=== PATIENT | male | born 1970 | race Hispanic/Latino ===

== ENCOUNTER 2023-10-07 20:25 | Inpatient (IN) | payer SELFPAY ==
[2023-10-07 21:23] LABS: #Eosinphils 0.3 thou/uL (0.0-0.7); #Monocytes 0.6 thou/uL (0.11-0.59); #Neutrophils 5.5 thou/uL (1.40-6.50); %Basophils 0.4 % (0.0-1.0); %Eosinophils 4.3 % (0.0-10.0); %Lymphocytes 15.9 % (21.0-51.0); %Monocytes 7.8 % (0.0-10.0); %Neutrophils 71.2 % (42.0-75.0); Hematocrit 33.9 % (42.0-52.0); Hemoglobin 10.6 g/dL (14.0-18.0); Mean Corpuscular HGB CONC 31.3 g/dL (32.0-36.0); Mean Corpuscular Hemoglobin 29.3 pg (27.0-31.0); Mean Corpuscular Volume 93.6 fl (78.0-98.0); Platelet Count 244 10x3/uL (130-400); RBC Distribution Width 14.3 % (11.5-14.5); Red Blood Cell (RBC) Count 3.62 mill/uL (4.70-6.10); White Blood Cell (WBC) Count 7.7 10x3/uL (4.8-10.8)
[2023-10-07 21:48] LABS: Troponin I 0.015 ng/mL (< 0.028)
[2023-10-07 21:51] LABS: ALT (SGPT) 18 U/L (8-55); AST (SGOT) 19 U/L (5-34); Albumin 2.3 g/dL (3.5-5.0); Alkaline Phosphatase 88 U/L (40-110); Anion Gap 11 mmol/L (10-20); BUN (Urea Nitrogen) 36 mg/dL (8.4-25.7); Bilirubin, Total 0.2 mg/dL (0.2-1.2); Calc. Creatinine Clearance 0 mL/min (70-130); Calcium 7.8 mg/dL (7.8-10.44); Carbon Dioxide 19 mmol/L (22-29); Chloride 119 mmol/L (98-107); Estimated GFR 14; Globulin 2.8 g/dL (2.4-3.5); Glucose 88 mg/dL (70-105); Potassium 5.3 mmol/L (3.5-5.1); Protein, Total 5.1 g/dL (6.0-8.3); Sodium 144 mmol/L (136-145)
[2023-10-07] MEDS ORDERED: Aspirin Chewable 81 MG TAB ONE ×2 (22:33→22:35)
[2023-10-07] MEDS ORDERED: hydrALAZINE 20 MG/ML VIAL ONE (22:33)
[2023-10-07] MEDS ORDERED: Ondansetron ODT 4 MG TAB SL PRN (22:45)
[2023-10-07] MEDS ORDERED: Ondansetron PF 4 MG/2 ML Vial IVP PRN (22:45)
[2023-10-07] MEDS ORDERED: Acetaminophen 325 MG TAB PO PRN (22:45)
[2023-10-07] MEDS ORDERED: Ondansetron ODT 4 MG TAB PO PRN (23:55)
[2023-10-08] MEDS ORDERED: Lorazepam 1 MG TAB PO PRN (00:09)
[2023-10-08] MEDS ORDERED: Lorazepam 2 MG/ML VIAL IM PRN (00:09)
[2023-10-08 01:00] LABS: Prothrombin Time 13.2 sec (12.0-14.7)
[2023-10-08] MEDS: Thiamine HCl 200 MG/2 ML VIAL SLOW IVP SCH (01:15)
[2023-10-08 04:29] LABS: #Eosinphils 0.2 thou/uL (0.0-0.7); #Monocytes 0.4 thou/uL (0.11-0.59); #Neutrophils 4.5 thou/uL (1.40-6.50); %Basophils 0.5 % (0.0-1.0); %Eosinophils 3.9 % (0.0-10.0); %Lymphocytes 15.4 % (21.0-51.0); %Monocytes 7.1 % (0.0-10.0); %Neutrophils 72.8 % (42.0-75.0); Hemoglobin 9.2 g/dL (14.0-18.0); Mean Corpuscular HGB CONC 31.7 g/dL (32.0-36.0); Mean Corpuscular Hemoglobin 29.2 pg (27.0-31.0); Mean Corpuscular Volume 92.1 fl (78.0-98.0); Mean Platelet Volume 11.4 fL (7.4-10.4); Platelet Count 210 10x3/uL (130-400); RBC Distribution Width 14.2 % (11.5-14.5); Red Blood Cell (RBC) Count 3.15 mill/uL (4.70-6.10); White Blood Cell (WBC) Count 6.2 10x3/uL (4.8-10.8)
[2023-10-08 04:52] LABS: Anion Gap 13 mmol/L (10-20); BUN (Urea Nitrogen) 40 mg/dL (8.4-25.7); Calc. Creatinine Clearance 18 mL/min (70-130); Calcium 7.4 mg/dL (7.8-10.44); Carbon Dioxide 17 mmol/L (22-29); Chloride 120 mmol/L (98-107); Estimated GFR 14; Glucose 77 mg/dL (70-105); Potassium 5.2 mmol/L (3.5-5.1); Sodium 145 mmol/L (136-145)
[2023-10-08] MEDS: Furosemide 20 MG (2 mL) VIAL SLOW IVP SCH ×2 (05:34→15:02)
[2023-10-08] MEDS: Famotidine 20 MG TAB PO SCH (08:57)
[2023-10-08] MEDS: Folic Acid 1 MG TAB PO SCH (08:58)
[2023-10-08] MEDS: hydrALAZINE 25 MG TAB PO SCH ×3 (08:58→20:50)
[2023-10-08] MEDS: Sodium Bicarbonate Tab 325 MG TAB PO SCH ×3 (08:58→20:49)
[2023-10-08] MEDS: Multivit, Therapeutic 1 TAB PO SCH (08:58)
[2023-10-08] MEDS ORDERED: FLU VACC QS2023-24(6MOS UP)/PF 60 MCG/0.5 ML SYRINGE IM ONE (09:00)
[2023-10-08 12:11] LABS: Iron 23 ug/dL (65-175); Iron Binding Capacity, Total 186 mcg/dL (261-462)
[2023-10-08 13:19] VITALS: BMI 23.5
[2023-10-08 16:25] LABS: Amphetamine Not Detected (NotDetected); Barbiturates Screen Not Detected (NotDetected); Benzodiazepine Screen Not Detected (NotDetected); Cocaine Metabolite Screen Not Detected (NotDetected); Methadone Not Detected (NotDetected); Methamphetamine Not Detected (NotDetected); Opiate Screen Not Detected (NotDetected); Oxycodone Screen Not Detected (NotDetected); Phencyclidine (PCP) Not Detected (NotDetected); THC/Cannabinoid Screen Not Detected (NotDetected); Tricyclic Screen Not Detected (NotDetected)
[2023-10-09] MEDS ORDERED: Lorazepam 1 MG TAB PO PRN (00:09)
[2023-10-09] MEDS: Thiamine HCl 200 MG/2 ML VIAL SLOW IVP SCH ×2 (00:27→23:44)
[2023-10-09] MEDS: Furosemide 20 MG (2 mL) VIAL SLOW IVP SCH ×2 (05:34→13:48)
[2023-10-09 06:16] LABS: #Eosinphils 0.4 thou/uL (0.0-0.7); #Monocytes 0.5 thou/uL (0.11-0.59); %Basophils 0.5 % (0.0-1.0); %Eosinophils 5.3 % (0.0-10.0); %Lymphocytes 15.3 % (21.0-51.0); %Monocytes 5.6 % (0.0-10.0); %Neutrophils 73.1 % (42.0-75.0); Hematocrit 31.8 % (42.0-52.0); Hemoglobin 10.5 g/dL (14.0-18.0); Mean Corpuscular Hemoglobin 30.1 pg (27.0-31.0); Mean Corpuscular Volume 91.1 fl (78.0-98.0); Mean Platelet Volume 11.3 fL (7.4-10.4); Platelet Count 261 10x3/uL (130-400); RBC Distribution Width 14.3 % (11.5-14.5); Red Blood Cell (RBC) Count 3.49 mill/uL (4.70-6.10); White Blood Cell (WBC) Count 8.3 10x3/uL (4.8-10.8)
[2023-10-09 06:26] LABS: Hemoglobin A1c 5.8 % (4.0-6.0)
[2023-10-09 06:41] LABS: ALT (SGPT) 17 U/L (8-55); AST (SGOT) 19 U/L (5-34); Albumin 2.2 g/dL (3.5-5.0); Alkaline Phosphatase 82 U/L (40-110); Anion Gap 12 mmol/L (10-20); BUN (Urea Nitrogen) 40 mg/dL (8.4-25.7); Bilirubin, Total 0.2 mg/dL (0.2-1.2); Calc. Creatinine Clearance 16 mL/min (70-130); Calcium 7.4 mg/dL (7.8-10.44); Carbon Dioxide 19 mmol/L (22-29); Cardiac Risk 4.2 (Less than 4.5); Chloride 117 mmol/L (98-107); Cholesterol 157 mg/dl (< 200 Desired); Estimated GFR 13; Globulin 3.1 g/dL (2.4-3.5); Glucose 79 mg/dL (70-105); HDL Cholesterol 37 mg/dL (>60 Neg Risk); LDL Cholesterol, Calculated 98 mg/dL; Phosphorus 4.9 mg/dL (2.3-4.7); Potassium 5.2 mmol/L (3.5-5.1); Protein, Total 5.3 g/dL (6.0-8.3); Sodium 143 mmol/L (136-145); Triglycerides 109 mg/dL (Less than 150)
[2023-10-09] MEDS: Acetaminophen 325 MG TAB PO PRN ×2 (08:07→13:46)
[2023-10-09] MEDS: Folic Acid 1 MG TAB PO SCH (08:08)
[2023-10-09] MEDS: Sodium Bicarbonate Tab 325 MG TAB PO SCH ×3 (08:08→20:24)
[2023-10-09] MEDS: Famotidine 20 MG TAB PO SCH (08:08)
[2023-10-09] MEDS: hydrALAZINE 25 MG TAB PO SCH ×3 (08:08→20:24)
[2023-10-09] MEDS: Multivit, Therapeutic 1 TAB PO SCH (08:08)
[2023-10-09] MEDS ORDERED: cloNIDine 0.1 MG TAB PO PRN (09:28)
[2023-10-09] MEDS ORDERED: Dextrose 5% in Water 1,000 ML IV PRN (12:24)
[2023-10-09] MEDS ORDERED: Glucagon 1 MG/ML KIT IM PRN (12:24)
[2023-10-09] MEDS ORDERED: Dextrose 50% Abboject 50 ML SYRINGE SLOW IVP PRN (12:24)
[2023-10-09] MEDS ORDERED: HumaLOG 300 UNITS/3 ML VIAL SC PRN ×2 (12:24)
[2023-10-09] MEDS ORDERED: Iron, Sodium Ferric Gluconate 125 MG in Sodium Chloride 0.9% 100 ML IVPB SCH (14:45)
[2023-10-09] MEDS: Heparin 5,000 UNITS/ML VIAL SC SCH (20:24)
[2023-10-10] MEDS ORDERED: Lorazepam 1 MG TAB PO PRN (00:09)
[2023-10-10 05:25] LABS: #Eosinphils 0.5 thou/uL (0.0-0.7); #Monocytes 0.5 thou/uL (0.11-0.59); #Neutrophils 5.6 thou/uL (1.40-6.50); %Basophils 0.3 % (0.0-1.0); %Lymphocytes 15.3 % (21.0-51.0); %Monocytes 6.5 % (0.0-10.0); %Neutrophils 71.6 % (42.0-75.0); Hematocrit 31.4 % (42.0-52.0); Hemoglobin 9.9 g/dL (14.0-18.0); Mean Corpuscular HGB CONC 31.5 g/dL (32.0-36.0); Mean Corpuscular Hemoglobin 29.1 pg (27.0-31.0); Mean Corpuscular Volume 92.4 fl (78.0-98.0); Mean Platelet Volume 11.3 fL (7.4-10.4); Platelet Count 244 10x3/uL (130-400); RBC Distribution Width 14.3 % (11.5-14.5); White Blood Cell (WBC) Count 7.8 10x3/uL (4.8-10.8)
[2023-10-10] MEDS: Furosemide 20 MG (2 mL) VIAL SLOW IVP SCH ×2 (05:40→14:00)
[2023-10-10 06:04] LABS: Anion Gap 12 mmol/L (10-20); BUN (Urea Nitrogen) 47 mg/dL (8.4-25.7); Calc. Creatinine Clearance 16 mL/min (70-130); Calcium 7.1 mg/dL (7.8-10.44); Carbon Dioxide 21 mmol/L (22-29); Chloride 115 mmol/L (98-107); Estimated GFR 12; Glucose 116 mg/dL (70-105); Potassium 5.1 mmol/L (3.5-5.1); Sodium 143 mmol/L (136-145)
[2023-10-10] MEDS: Multivit, Therapeutic 1 TAB PO SCH (08:53)
[2023-10-10] MEDS: Acetaminophen 325 MG TAB PO PRN (08:54)
[2023-10-10] MEDS: Folic Acid 1 MG TAB PO SCH (08:54)
[2023-10-10] MEDS: Sodium Bicarbonate Tab 325 MG TAB PO SCH ×3 (08:54→20:04)
[2023-10-10] MEDS: hydrALAZINE 25 MG TAB PO SCH ×5 (08:55→20:04)
[2023-10-10] MEDS: Famotidine 20 MG TAB PO SCH (08:55)
[2023-10-10] MEDS: Heparin 5,000 UNITS/ML VIAL SC SCH ×2 (08:55→20:05)
[2023-10-10] MEDS ORDERED: Iron, Sodium Ferric Gluconate 125 MG in Sodium Chloride 0.9% 100 ML IVPB SCH (10:00)
[2023-10-11] MEDS ORDERED: Lorazepam 0.5 MG TAB PO PRN (00:09)
[2023-10-11 05:26] LABS: #Eosinphils 0.4 thou/uL (0.0-0.7); #Monocytes 0.5 thou/uL (0.11-0.59); #Neutrophils 4.7 thou/uL (1.40-6.50); %Basophils 0.4 % (0.0-1.0); %Eosinophils 6.1 % (0.0-10.0); %Lymphocytes 17.6 % (21.0-51.0); %Monocytes 7.1 % (0.0-10.0); %Neutrophils 68.8 % (42.0-75.0); Hematocrit 31.5 % (42.0-52.0); Hemoglobin 9.8 g/dL (14.0-18.0); Mean Corpuscular HGB CONC 31.1 g/dL (32.0-36.0); Mean Corpuscular Hemoglobin 28.7 pg (27.0-31.0); Mean Corpuscular Volume 92.4 fl (78.0-98.0); Mean Platelet Volume 11.5 fL (7.4-10.4); Platelet Count 229 10x3/uL (130-400); RBC Distribution Width 14.3 % (11.5-14.5); Red Blood Cell (RBC) Count 3.41 mill/uL (4.70-6.10); White Blood Cell (WBC) Count 6.8 10x3/uL (4.8-10.8)
[2023-10-11] MEDS: Furosemide 20 MG (2 mL) VIAL SLOW IVP SCH ×2 (05:45→15:06)
[2023-10-11 05:47] LABS: Anion Gap 12 mmol/L (10-20); BUN (Urea Nitrogen) 48 mg/dL (8.4-25.7); Calc. Creatinine Clearance 15 mL/min (70-130); Carbon Dioxide 20 mmol/L (22-29); Chloride 116 mmol/L (98-107); Estimated GFR 11; Glucose 93 mg/dL (70-105); Sodium 143 mmol/L (136-145)
[2023-10-11] MEDS: Famotidine 20 MG TAB PO SCH (08:48)
[2023-10-11] MEDS: Folic Acid 1 MG TAB PO SCH (08:49)
[2023-10-11] MEDS: hydrALAZINE 25 MG TAB PO SCH ×4 (08:49→20:20)
[2023-10-11] MEDS: Sodium Bicarbonate Tab 325 MG TAB PO SCH ×3 (08:50→20:20)
[2023-10-11] MEDS: Multivit, Therapeutic 1 TAB PO SCH (08:50)
[2023-10-11] MEDS: Thiamine 100 MG TAB PO SCH (08:50)
[2023-10-11] MEDS: Heparin 5,000 UNITS/ML VIAL SC SCH ×2 (08:52→20:20)
[2023-10-12 03:59] LABS: #Eosinphils 0.4 thou/uL (0.0-0.7); #Monocytes 0.5 thou/uL (0.11-0.59); #Neutrophils 4.3 thou/uL (1.40-6.50); %Basophils 0.3 % (0.0-1.0); %Eosinophils 5.9 % (0.0-10.0); %Lymphocytes 17.2 % (21.0-51.0); %Monocytes 8.1 % (0.0-10.0); %Neutrophils 68.2 % (42.0-75.0); Hemoglobin 9.4 g/dL (14.0-18.0); Mean Corpuscular HGB CONC 31.3 g/dL (32.0-36.0); Mean Corpuscular Volume 92.6 fl (78.0-98.0); Mean Platelet Volume 11.4 fL (7.4-10.4); Platelet Count 208 10x3/uL (130-400); RBC Distribution Width 14.5 % (11.5-14.5); Red Blood Cell (RBC) Count 3.24 mill/uL (4.70-6.10); White Blood Cell (WBC) Count 6.3 10x3/uL (4.8-10.8)
[2023-10-12 04:27] LABS: Anion Gap 11 mmol/L (10-20); BUN (Urea Nitrogen) 49 mg/dL (8.4-25.7); Calc. Creatinine Clearance 15 mL/min (70-130); Carbon Dioxide 23 mmol/L (22-29); Chloride 114 mmol/L (98-107); Estimated GFR 11; Glucose 121 mg/dL (70-105); Potassium 5.1 mmol/L (3.5-5.1); Sodium 143 mmol/L (136-145)
[2023-10-12] MEDS: Furosemide 20 MG (2 mL) VIAL SLOW IVP SCH ×2 (05:53→13:57)
[2023-10-12] MEDS: Sodium Bicarbonate Tab 325 MG TAB PO SCH ×2 (09:33→13:57)
[2023-10-12] MEDS: Famotidine 20 MG TAB PO SCH (09:33)
[2023-10-12] MEDS: hydrALAZINE 25 MG TAB PO SCH ×3 (09:33→17:25)
[2023-10-12] MEDS: Thiamine 100 MG TAB PO SCH (09:33)
[2023-10-12] MEDS: Folic Acid 1 MG TAB PO SCH (09:33)
[2023-10-12] MEDS: Multivit, Therapeutic 1 TAB PO SCH (09:33)
[2023-10-12] MEDS: Heparin 5,000 UNITS/ML VIAL SC SCH (09:34)
[2023-10-12 15:00] VITALS: BP 175/85; TEMP 97.9
== END 2023-10-12 19:00 | disposition home or self-care (01) | DRG 682 ==
LOC: ERS 20:25 → 2SE 22:31
PROVIDERS: ADMIT Student in an Organized Health Care Education/Training Program; ATTEND Family Medicine
DX: N17.9 Acute kidney failure, unspecified (principal); I50.33 Acute on chronic diastolic (congestive) heart failure; I13.2 Hypertensive heart and chronic kidney disease with heart failure and with stage 5 chronic kidney disease, or end stage renal disease; E87.20 Acidosis, unspecified; E87.5 Hyperkalemia; E88.09 Other disorders of plasma-protein metabolism, not elsewhere classified; D63.1 Anemia in chronic kidney disease; F19.10 Other psychoactive substance abuse, uncomplicated; Z91.148 Patient's other noncompliance with medication regimen for other reason; N18.5 Chronic kidney disease, stage 5; Z79.899 Other long term (current) drug therapy
CPT/HCPCS: 36415; 36416; 71045; 76770; 80048; 80053; 80061; 80306; 82728; 83036; 83540; 83550; 83735; 83935; 83970; 84100; 84300; 84443; 85025; 85610; 93005; 93306; 96374; J0360; J1644; J1940; J2916; J3411; J3490